=== PATIENT | male | born 1960 | race Two or more races ===

== ENCOUNTER 2024-12-09 12:29 | Emergency (ER) | payer MEDICARE, MEDICAID, SELFPAY ==
[2024-12-09 12:32] VITALS: BMI 24.3
[2024-12-09 12:44] VITALS: BP 161/90; PULSE 85; RESP 16; TEMP 37.2; O2SAT 95
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
== END 2024-12-09 14:30 | disposition home or self-care (01) ==
LOC: SERX 14:16
PROVIDERS: Emergency Provider Emergency Medicine; PCP Family Medicine
DX: S29.9XXA Unspecified injury of thorax, initial encounter (principal); S39.91XA Unspecified injury of abdomen, initial encounter; E04.1 Nontoxic single thyroid nodule; V89.2XXA Person injured in unspecified motor-vehicle accident, traffic, initial encounter
CPT/HCPCS: 71250; 74176; 99284